=== PATIENT | male | born 1960 | race Caucasian/White ===

== ENCOUNTER → 2019-07-12 | Outpatient (CLI) | payer OTHER | LOC: CAT 10:23 | DX: Z13.6 Encounter for screening for cardiovascular disorders (principal); I25.10 Atherosclerotic heart disease of native coronary artery without angina pectoris; E78.00 Pure hypercholesterolemia, unspecified ==

== ENCOUNTER → 2019-07-19 | Outpatient (CLI) | payer OTHER | LOC: SJCVCIMAG 08:18 | PROVIDERS: ATTEND Internal Medicine Cardiovascular Disease | DX: K80.20 Calculus of gallbladder without cholecystitis without obstruction (principal) ==

== ENCOUNTER → 2020-01-04 | Outpatient (CLI) | payer OTHER | LOC: SJCVCIMAG 08:54 | PROVIDERS: ATTEND Internal Medicine Cardiovascular Disease | DX: I44.0 Atrioventricular block, first degree (principal); I49.3 Ventricular premature depolarization; R00.0 Tachycardia, unspecified; I25.10 Atherosclerotic heart disease of native coronary artery without angina pectoris; I10 Essential (primary) hypertension; Z79.899 Other long term (current) drug therapy; E78.5 Hyperlipidemia, unspecified ==

== ENCOUNTER 2020-08-08 01:39 | Emergency (ER) | payer OTHER ==
[~2020-08-08] VITALS: Ht 188 cm; Wt 99.8 kg
[2020-08-08 02:14] LABS: ABSOLUTE NEUTROPHILS 4.4 thou/uL (1.4-8.2); BASOPHILS 0.4 % (0.0-2.0); EOSINOPHILS 2.6 % (0.0-3.0); HEMATOCRIT 42.1 % (42.0-52.0); HEMOGLOBIN 14.4 gm/dL (14.0-18.0); LYMPHOCYTES 31.7 % (24.0-44.0); MCH 33.3 pg (26.0-34.0); MCHC 34.3 g/dL (28.0-37.0); MCV 97.2 fL (80.0-100.0); MONOCYTES 8.4 % (1.0-8.0); PLATELET COUNT 242 thou/uL (150-400); POLYS 56.9 % (36.0-66.0); RBC 4.34 mil/uL (4.50-6.00); WBC 7.7 thou/uL (4.0-11.0)
[2020-08-08 02:21] LABS: ANION GAP 11 mmol/L (7-16); BUN 15 mg/dL (7-18); CALCIUM 9.1 mg/dL (8.5-10.1); CHLORIDE 98 mmol/L (98-107); CO2 26 mmol/L (21-32); CREATININE 1.1 mg/dL (0.7-1.3); GLUCOSE 116 mg/dL (74-106); POTASSIUM 4.2 mmol/L (3.5-5.1); SODIUM 135 mmol/L (136-145)
[2020-08-08 02:31] LABS: ALBUMIN 4.2 g/dL (3.4-5.0); LIPASE 152 U/L (73-393); SGOT 26 U/L (15-37); SGPT 36 U/L (30-65); TOTAL BILIRUBIN 0.5 mg/dL (0.2-1.0); TOTAL PROTEIN 7.9 g/dL (6.4-8.2); TROPONIN-I <0.06 ng/mL (<0.06)
[2020-08-08] MEDS ORDERED: ZOFRAN ODT4 MG PO (04:36)
[2020-08-08 04:50] VITALS: BP 143/74
--- NOTE | 2020-08-08 06:45 | EKG ---
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
--- NOTE | 2020-08-08 06:45 | EKG ---
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1960 Requested By: Hal Garrido Order Number: [id number] MD: Kobe Coello Measurements Intervals [place] Rate: 57 P: -16 HI: 267 QRS: 86 QRSD: 115 T: 47 QT: 430 QTc: 419 Interpretive Statements Sinus rhythm Nonspecific intraventricular conduction delay Baseline wander in lead(s) V6 No previous ECG available for comparison Electronically Signed On 08-08-2020 6:45:11 CDT by Kobe Coello [email or web address] <ELECTRONICALLY SIGNED> By: Kobe Coello MD, [facility] 08/08/20 [id number] Kobe Coello MD, FACLaila /EPI
== END 2020-08-08 04:58 | disposition home or self-care (01) ==
LOC: ER 01:39
PROVIDERS: Emergency Medicine
DX: R07.89 Other chest pain (principal); R10.13 Epigastric pain; R06.02 Shortness of breath; R11.0 Nausea; I10 Essential (primary) hypertension; E78.00 Pure hypercholesterolemia, unspecified